=== PATIENT | male | born 1940 | race Asian ===

== ENCOUNTER 2022-01-11 11:39 | Inpatient (IN) | payer OTHER ==
[~2022-01-11] VITALS: Ht 170.2 cm; Wt 62.6 kg
[~2022-01-11 11:39] MED LIST: RANITAB32 OR
[2022-01-11 14:04] LABS: Basophils # (auto) 0 10 ^3/uL (0-0.2); Basophils % (auto) 0.3 % (0.0-2.0); Eosinophils # (auto) 0 10 ^3/uL (0-0.8); Eosinophils % (auto) 0.4 % (0.0-7.0); Hematocrit 36.8 % (41.0-53.0); Hemoglobin 12.7 g/dL (13.5-17.5); Lymphocytes # (auto) 0.9 10 ^3/uL (0.4-5.4); Lymphocytes % (auto) 13.2 % (10.0-50.0); Mean Corpuscular Hemoglobin 31.5 pg (28.0-32.0); Mean Corpuscular Hgb Conc. 34.6 g/dL (32.0-36.0); Mean Corpuscular Volume 90.9 fL (80.0-100.0); Monocytes # (auto) 0.3 10 ^3/uL (0-1.3); Monocytes % (auto) 4.2 % (0.0-12.0); Neutrophils # (auto) 5.6 10 ^3/uL (1.6-8.6); Neutrophils % (auto) 81.9 % (37.0-80.0); Red Blood Cells 4.04 10^6/uL (4.5-5.90); Red Cell Distribution Width 13.3 % (11.8-14.3); White Blood Cell 6.8 10^3/uL (4.4-10.8)
[2022-01-11 14:09] LABS: Albumin 3.8 g/dL (3.4-5.0); BUN/Creatinine Ratio 14.4; Calcium 9.1 mg/dL (8.5-10.1); Potassium 3.8 mmol/L (3.5-5.1)
[2022-01-11 14:09] LABS: Urine Bacteria NONE SEEN /hpf (None Seen); Urine Blood Negative /uL (Negative); Urine Specific Gravity 1.009 (1.001-1.035); Urine WBC <1 /hpf (0 - 3)
[2022-01-11 14:12] LABS: Bilirubin, Total 0.8 mg/dL (0.2-1.0); Total Protein 6.7 g/dL (6.4-8.2)
[2022-01-11] MEDS ORDERED: ACETAMINOPHEN 325 MG TAB PO ONE (15:15)
[2022-01-11] MEDS ORDERED: ONDANSETRON HCL 4 MG/2 ML VIAL IV PRN (16:15)
[2022-01-11 16:52] LABS: Cholesterol 143 mg/dL (< 200)
[2022-01-11 16:55] LABS: HDL Cholesterol 47 mg/dL (40-59); LDL Cholesterol 84 mg/dL (< 100); Triglycerides 74 mg/dL (< 150)
[2022-01-11] MEDS ORDERED: PANTOPRAZOLE 40 MG/10 ML VIAL INJ IV ONE (17:00)
[2022-01-11 17:10] LABS: INR 1.05 (0.9-1.15)
[2022-01-11 21:58] VITALS: BP 133/71
[2022-01-11 22:00] VITALS: BP 140/69
[2022-01-12 05:00] VITALS: BP 132/69
[2022-01-12 07:02] LABS: Albumin 3.5 g/dL (3.4-5.0); Calcium 9.1 mg/dL (8.5-10.1); Potassium 4.2 mmol/L (3.5-5.1)
[2022-01-12 07:04] LABS: BUN/Creatinine Ratio 14.3
[2022-01-12 07:06] LABS: Bilirubin, Total 0.6 mg/dL (0.2-1.0); Total Protein 6.2 g/dL (6.4-8.2)
[2022-01-12 07:09] LABS: Basophils # (auto) 0 10 ^3/uL (0-0.2); Basophils % (auto) 0.5 % (0.0-2.0); Eosinophils # (auto) 0.1 10 ^3/uL (0-0.8); Eosinophils % (auto) 2.1 % (0.0-7.0); Hematocrit 35.8 % (41.0-53.0); Hemoglobin 12.6 g/dL (13.5-17.5); Lymphocytes # (auto) 1.4 10 ^3/uL (0.4-5.4); Lymphocytes % (auto) 25.8 % (10.0-50.0); Mean Corpuscular Hemoglobin 32.1 pg (28.0-32.0); Mean Corpuscular Hgb Conc. 35.2 g/dL (32.0-36.0); Mean Corpuscular Volume 91.1 fL (80.0-100.0); Monocytes # (auto) 0.4 10 ^3/uL (0-1.3); Monocytes % (auto) 7.7 % (0.0-12.0); Neutrophils # (auto) 3.5 10 ^3/uL (1.6-8.6); Neutrophils % (auto) 63.9 % (37.0-80.0); Nucleated Red Blood Cells % 0.1 %; Red Blood Cells 3.93 10^6/uL (4.5-5.90); Red Cell Distribution Width 13.3 % (11.8-14.3); White Blood Cell 5.5 10^3/uL (4.4-10.8)
[2022-01-12 08:30] VITALS: BP 118/59
[2022-01-12] MEDS: PANTOPRAZOLE 40 MG/10 ML VIAL INJ IV SCH (09:59)
[2022-01-12] MEDS: ENOXAPARIN SOD 40 MG/0.4 ML SYRINGE SC SCH (09:59)
[2022-01-12 12:30] VITALS: BP 137/75
[2022-01-12 16:57] VITALS: BP 140/69
[2022-01-12 22:51] VITALS: BP 121/67
[2022-01-13] VITALS (7 sets, daily range): BP systolic 126–142; BP diastolic 55–71
[2022-01-13] MEDS ORDERED: ASPirin 325 MG TAB PO SCH (10:00)
[2022-01-13] MEDS: ENOXAPARIN SOD 40 MG/0.4 ML SYRINGE SC SCH (10:17)
[2022-01-13] MEDS: PANTOPRAZOLE 40 MG/10 ML VIAL INJ IV SCH (10:17)
[2022-01-13 10:56] LABS: Cholesterol 143 mg/dL (< 200); HDL Cholesterol 43 mg/dL (40-59); LDL Cholesterol 81 mg/dL (< 100); Triglycerides 158 mg/dL (< 150)
[2022-01-13] MEDS ORDERED: ATORVASTATIN 20 MG TAB PO SCH (22:00)
[2022-01-14 05:00] VITALS: BP 107/58
[2022-01-14] MEDS: ENOXAPARIN SOD 40 MG/0.4 ML SYRINGE SC SCH (08:10)
[2022-01-14 09:00] VITALS: BP 106/55
[2022-01-14] MEDS ORDERED: CLOPIDOGREL BISULFATE 75 MG TAB PO SCH (10:00)
[2022-01-14] MEDS ORDERED: ASPirin 325 MG TAB PO SCH (10:00)
[2022-01-14 13:00] VITALS: BP 138/65
[2022-01-14 17:00] VITALS: BP 140/80
[2022-01-14] MEDS ORDERED: FENO160T8 PO (18:17)
[2022-01-14] MEDS ORDERED: ASPI-109 PO (18:17)
[2022-01-14] MEDS ORDERED: CLOP75TA70 PO (18:17)
[2022-01-14] MEDS ORDERED: ATOR20TA50 PO (18:17)
== END 2022-01-14 18:55 | disposition home or self-care (01) | DRG 66 ==
LOC: ER 11:39 → TELE 16:10 → TELE-WESTW 21:11
PROVIDERS: ADMIT Registered Nurse; ATTEND Internal Medicine
DX: I63.011 Cerebral infarction due to thrombosis of right vertebral artery (principal); D63.8 Anemia in other chronic diseases classified elsewhere; N18.2 Chronic kidney disease, stage 2 (mild); M50.90 Cervical disc disorder, unspecified, unspecified cervical region; E78.5 Hyperlipidemia, unspecified; I12.9 Hypertensive chronic kidney disease with stage 1 through stage 4 chronic kidney disease, or unspecified chronic kidney disease; Z20.822 Contact with and (suspected) exposure to COVID-19; R27.0 Ataxia, unspecified; Z91.14 Patient's other noncompliance with medication regimen; Z90.49 Acquired absence of other specified parts of digestive tract
CPT/HCPCS: 36415; 70450; 70551; 71045; 72125; 72170; 72192; 73030; 73060; 73080; 80053; 80061; 81001; 84484; 85025; 85610; 93005; 93306; 93886; 96374; 97163; C9113; G0378

== ENCOUNTER 2022-01-16 04:04 | Inpatient (IN) | payer OTHER ==
[~2022-01-16] VITALS: Ht 165.1 cm; Wt 58.3 kg
[~2022-01-16 04:04] MED LIST changes: +ASPI-109 PO; +ATOR20TA50 PO; +CLOP75TA70 PO; +FENO160T8 PO
[2022-01-16 04:42] LABS: Basophils # (auto) 0 10 ^3/uL (0-0.2); Basophils % (auto) 0.5 % (0.0-2.0); Eosinophils # (auto) 0.1 10 ^3/uL (0-0.8); Eosinophils % (auto) 1.8 % (0.0-7.0); Hematocrit 36.4 % (41.0-53.0); Hemoglobin 12.8 g/dL (13.5-17.5); Lymphocytes # (auto) 0.8 10 ^3/uL (0.4-5.4); Lymphocytes % (auto) 18.6 % (10.0-50.0); Mean Corpuscular Hemoglobin 31.5 pg (28.0-32.0); Mean Corpuscular Hgb Conc. 35.1 g/dL (32.0-36.0); Mean Corpuscular Volume 89.8 fL (80.0-100.0); Monocytes # (auto) 0.2 10 ^3/uL (0-1.3); Monocytes % (auto) 4.9 % (0.0-12.0); Neutrophils # (auto) 3.1 10 ^3/uL (1.6-8.6); Neutrophils % (auto) 74.2 % (37.0-80.0); Nucleated Red Blood Cells % 0.1 %; Red Blood Cells 4.05 10^6/uL (4.5-5.90); White Blood Cell 4.2 10^3/uL (4.4-10.8)
[2022-01-16 04:58] LABS: Albumin 3.9 g/dL (3.4-5.0); Calcium 8.8 mg/dL (8.5-10.1); Magnesium 2.4 mg/dL (1.6-2.6); Potassium 4.3 mmol/L (3.5-5.1)
[2022-01-16 05:02] LABS: BUN/Creatinine Ratio 19.1; Bilirubin, Total 0.7 mg/dL (0.2-1.0); Total Protein 6.8 g/dL (6.4-8.2)
[2022-01-16 07:40] LABS: Urine WBC None Seen /hpf (0 - 3)
[2022-01-16 10:27] LABS: Urine Bacteria NONE SEEN /hpf (None Seen); Urine Blood Negative /uL (Negative); Urine Specific Gravity 1.005 (1.001-1.035)
[2022-01-16] MEDS ORDERED: OXYCODONE W/ ACETAMINOPHEN 5/325MG TABLET PO ONE (13:00)
[2022-01-16] MEDS ORDERED: ONDANSETRON HCL 4 MG/2 ML VIAL IV PRN (17:15)
[2022-01-16] MEDS ORDERED: hydrALAZINE HCL 20 MG/ML VL IV PRN (17:30)
[2022-01-16 22:00] VITALS: BP 163/80
[2022-01-16 22:20] VITALS: BP 148/82
[2022-01-16] MEDS: ATORVASTATIN 20 MG TAB PO SCH (22:41)
[2022-01-17 06:21] LABS: Basophils # (auto) 0 10 ^3/uL (0-0.2); Basophils % (auto) 0.5 % (0.0-2.0); Eosinophils # (auto) 0.1 10 ^3/uL (0-0.8); Eosinophils % (auto) 2.3 % (0.0-7.0); Hemoglobin 13.9 g/dL (13.5-17.5); Lymphocytes # (auto) 1.7 10 ^3/uL (0.4-5.4); Lymphocytes % (auto) 31.8 % (10.0-50.0); Mean Corpuscular Hemoglobin 31.6 pg (28.0-32.0); Mean Corpuscular Hgb Conc. 34.7 g/dL (32.0-36.0); Monocytes # (auto) 0.5 10 ^3/uL (0-1.3); Monocytes % (auto) 9.2 % (0.0-12.0); Neutrophils % (auto) 56.2 % (37.0-80.0); Red Blood Cells 4.39 10^6/uL (4.5-5.90); Red Cell Distribution Width 13.2 % (11.8-14.3); White Blood Cell 5.3 10^3/uL (4.4-10.8)
[2022-01-17 06:28] LABS: Potassium 4.6 mmol/L (3.5-5.1)
[2022-01-17 06:44] LABS: Albumin 4.2 g/dL (3.4-5.0); BUN/Creatinine Ratio 17.3; Bilirubin, Total 0.6 mg/dL (0.2-1.0); Calcium 9.7 mg/dL (8.5-10.1); Total Protein 7.3 g/dL (6.4-8.2)
[2022-01-17 08:42] VITALS: BP 124/68
[2022-01-17] MEDS ORDERED: CLOPIDOGREL BISULFATE 75 MG TAB PO SCH (10:00)
[2022-01-17] MEDS: PATIENTS OWN MEDICATION (Fenofibrate 1 TAB) PO SCH (10:00)
[2022-01-17] MEDS: ASPirin 81 mg TAB PO SCH (12:49)
[2022-01-17 12:52] VITALS: BP 117/67
[2022-01-17] MEDS: OXYCODONE W/ ACETAMINOPHEN 5/325MG TABLET PO PRN ×3 (14:19→22:58)
[2022-01-17 16:52] VITALS: BP 131/75
[2022-01-17] MEDS ORDERED: LORazepam 2MG/ML-1ML VIAL IV PRN (18:15)
[2022-01-17] MEDS: ATORVASTATIN 20 MG TAB PO SCH (21:55)
[2022-01-17 22:00] VITALS: BP 151/73
[2022-01-17 22:30] VITALS: BP 140/70
[2022-01-18 05:00] VITALS: BP 107/67
[2022-01-18 09:00] VITALS: BP 117/63
[2022-01-18] MEDS: PATIENTS OWN MEDICATION (Fenofibrate 1 TAB) PO SCH (09:24)
[2022-01-18] MEDS: ASPirin 81 mg TAB PO SCH (09:24)
[2022-01-18] MEDS: OXYCODONE W/ ACETAMINOPHEN 5/325MG TABLET PO PRN ×3 (09:25→20:48)
[2022-01-18 13:00] VITALS: BP 103/67
[2022-01-18] MEDS ORDERED: IOHEXOL 350 MG/ML 100ML IJ ONE (15:58)
[2022-01-18] MEDS: SODIUM CHLORIDE 0.9% 1,000 ML IV SCH (16:16)
[2022-01-18 17:00] VITALS: BP 134/70
[2022-01-18] MEDS: ATORVASTATIN 20 MG TAB PO SCH (20:48)
[2022-01-18 22:00] VITALS: BP 135/72
[2022-01-19] MEDS: SODIUM CHLORIDE 0.9% 1,000 ML IV SCH ×3 (02:00→21:32)
[2022-01-19] MEDS: OXYCODONE W/ ACETAMINOPHEN 5/325MG TABLET PO PRN ×3 (04:20→19:50)
[2022-01-19 05:00] VITALS: BP 134/76
[2022-01-19] MEDS ORDERED: OXYCODONE W/ ACETAMINOPHEN 5/325MG TABLET PO ONE (06:15)
[2022-01-19] MEDS: PATIENTS OWN MEDICATION (Fenofibrate 1 TAB) PO SCH (08:19)
[2022-01-19] MEDS: ASPirin 81 mg TAB PO SCH (08:19)
[2022-01-19 09:00] VITALS: BP 128/67
[2022-01-19] MEDS: DOCUSATE SOD 100 MG CAP PO SCH ×2 (11:09→21:31)
[2022-01-19 13:00] VITALS: BP 124/71
[2022-01-19 17:00] VITALS: BP 138/80
[2022-01-19] MEDS: ATORVASTATIN 20 MG TAB PO SCH (21:32)
[2022-01-19 21:52] VITALS: BP 126/70
[2022-01-20] MEDS: OXYCODONE W/ ACETAMINOPHEN 5/325MG TABLET PO PRN ×4 (00:30→14:50)
[2022-01-20 05:22] VITALS: BP 133/60
[2022-01-20] MEDS: ASPirin 81 mg TAB PO SCH (08:41)
[2022-01-20] MEDS: DOCUSATE SOD 100 MG CAP PO SCH (08:42)
[2022-01-20] MEDS: SODIUM CHLORIDE 0.9% 1,000 ML IV SCH (08:45)
[2022-01-20 09:17] VITALS: BP 119/62
[2022-01-20] MEDS: PATIENTS OWN MEDICATION (Fenofibrate 1 TAB) PO SCH (10:00)
[2022-01-20 13:00] VITALS: BP_SYST 120; BP_SYST 148; BP_DIAS 68; BP_DIAS 69
[2022-01-20] MEDS ORDERED: PERCOT PO (13:30)
[2022-01-20 15:03] VITALS: BP 131/62
== END 2022-01-20 16:22 | disposition home or self-care (01) | DRG 66 ==
LOC: ER 04:04 → TELE 17:04 → TELE-WESTW 20:18
PROVIDERS: ADMIT Registered Nurse; ATTEND Hospitalist
DX: I63.9 Cerebral infarction, unspecified (principal); N18.2 Chronic kidney disease, stage 2 (mild); E78.5 Hyperlipidemia, unspecified; K21.9 Gastro-esophageal reflux disease without esophagitis; Z20.822 Contact with and (suspected) exposure to COVID-19; Z79.82 Long term (current) use of aspirin; Z79.899 Other long term (current) drug therapy; Z86.73 Personal history of transient ischemic attack (TIA), and cerebral infarction without residual deficits; Z90.49 Acquired absence of other specified parts of digestive tract
CPT/HCPCS: 36415; 70450; 70496; 70498; 70551; 71045; 80053; 81001; 83036; 83735; 84484; 85025; 93005; G0378